=== PATIENT | male | born 1990 | race Caucasian/White ===

== ENCOUNTER 2016-05-05 15:41 | Observation (INO) | payer SELFPAY ==
--- NOTE | 2016-05-05 15:48 | ER Document Report ---
ED Medical Screen (RME) - General Stated Complaint: SYNCOPAL EPISODE Time seen by provider: 15:48 Mode of Arrival: Medic Information source: Patient Notes: 25-year-old with hx seizure at age 10 , male developed vision blurring/black, next thing He knows he woke up floor on his stomach. He then got up and leaned against a machine at work feeling nauseated, someone brought him a couple water , a coworker told him that his eyes rolled back in his head his eyes got foggy and he passed out again. He has amnesia to other events. This morning in his bathroom he was at the sink and his vision became blurred again and the next thing he knows he woke up on the floor in the position on his left side. I is complaining of pain in his left lower ribs, left knee and he is complaining of dysuria that started yesterday. With a little bit of suprapubic discomfort. He is a bruise over his right eyebrow with headache from right superior orbit to right post occiput, no hx headache . He also has midline lower neck discomfort. I have consulted with the dr. gardner supervisory physician per [facility] Guidelines. I have greeted and performed a rapid initial assessment of this patient. A comprehensive ED assessment, evaluation of the patient, analysis of test results , and completion of the medical decision making process will be contacted by additional ED providers. - Related Data Allergies/Adverse Reactions: Penicillins Allergy (Verified 05/05/16 15:58) Physical Exam - Vital signs Vitals: Temp Pulse Resp BP Pulse Ox 97.9 F 85 16 118/90 H 98 05/05/16 15:48 05/05/16 15:48 05/05/16 15:48 05/05/16 15:48 05/05/16 15:48 Course - Vital Signs Vital signs: Temp Pulse Resp BP Pulse Ox 97.9 F 85 16 118/90 H 98 05/05/16 15:48 05/05/16 15:48 05/05/16 15:48 05/05/16 15:48 05/05/16 15:48
[2016-05-05 16:49] LABS: AMORPHOUS SEDIMENT,URINE TRACE /HPF; APPEARANCE,URINE TURBID; BILIRUBIN,URINE NEGATIVE (NEGATIVE); GLUCOSE, URINE NEGATIVE (NEGATIVE); KETONES,URINE NEGATIVE (NEGATIVE); LEUKOCYTE ESTERASE,URINE NEGATIVE (NEGATIVE); NITRITE,URINE NEGATIVE (NEGATIVE); PROTEIN,URINE NEGATIVE (NEGATIVE); URINE SPECIFIC GRAVITY 1.018; UROBILINOGEN,URINE NEGATIVE mg/dL (<2.0)
[2016-05-05 16:52] LABS: ABSOLUTE LYMPHOCYTES (AUTO) 1.7 10^3/uL (0.5-4.7); ABSOLUTE MONOCYTES (AUTO) 0.9 10^3/uL (0.1-1.4); ABSOLUTE NEUT (AUTO) 5.9 10^3/uL (1.7-8.2); BASOPHILS % (AUTO) 0.6 % (0-2); EOSINOPHILS % (AUTO) 0.4 % (0-6); HEMATOCRIT 45.1 % (37.9-51.0); HEMOGLOBIN 15.2 g/dL (13.5-17.0); HGB HCT DIFFERENCE 0.5; LYMPHOCYTES % (AUTO) 19.7 % (13-45); MEAN CORPUSCULAR HEMOGLOBIN 30.1 pg (27.0-33.4); MEAN CORPUSCULAR HGB CONC 33.7 g/dL (32.0-36.0); MEAN CORPUSCULAR VOLUME 89 fl (80-97); MONOCYTES % (AUTO) 10.2 % (3-13); RED BLOOD COUNT 5.04 10^6/uL (4.35-5.55); RED CELL DISTRIBUTION WIDTH 12.9 % (11.5-14.0); SEGMENTED NEUTROPHILS % (AUTO) 69.1 % (42-78); WHITE BLOOD COUNT 8.5 10^3/uL (4.0-10.5)
[2016-05-05 17:05] LABS: ALANINE AMINOTRANSFERASE 20 U/L (21-72); ALKALINE PHOSPHATASE 67 U/L (38-126); ANION GAP 15 (5-19); ASPARTATE AMINO TRANSFERASE 17 U/L (17-59); BILIRUBIN,TOTAL 0.7 mg/dL (0.2-1.3); BLOOD UREA NITROGEN 11 mg/dL (7-20); CALCIUM 10.3 mg/dL (8.4-10.2); CARBON DIOXIDE 29 mmol/L (22-30); CHLORIDE 104 mmol/L (98-107); CREATININE RESULT 0.79 mg/dL (0.52-1.25); GLUCOSE 106 mg/dL (75-110); POTASSIUM 4.7 mmol/L (3.6-5.0); SODIUM 148.1 mmol/L (137-145); TOTAL PROTEIN 8.1 g/dL (6.3-8.2)
--- NOTE | 2016-05-05 18:13 | ER Document Report ---
ED Syncope and Near Syncope - General Chief Complaint: Syncope Stated Complaint: SYNCOPAL EPISODE Time Seen by Provider: 05/05/16 15:47 Mode of Arrival: Medic Notes: Patient is a 25-year-old male who presents emergency department via EMS after multiple syncopal episodes in the past 2 days. Patient is here with his mother who conducts most of the history. She states that he has a history of seizure activity when he was 10-year-old but has not had any issues over the past 10 years. He does not follow any neurologist and is not on any medications. Mom states that over the past 2 days he has had multiple syncopal episodes described and witnessed by his boss. Mom states that the boss witnessed and standing his eyes glazed over and low back into his head and collapsed but has not witnessed any tongue biting, generalized convulsions or loss of urinary control. Denies any chest pain before these episodes, palpitations, shortness of breath, dyspnea, chest pressure. Past medical history significant for ADHD and history of seizures as a child Denies any surgical history Social history denies any tobacco use, alcohol or drug use. Only significant change in diet over the past 10 days has been noted rapid decrease in his caffeine intake. He is to drink 12 allergy drinks such as rockstar daily but it 's only been drinking pop over the past couple of day TRAVEL OUTSIDE OF THE [place] IN LAST 30 DAYS: No - Related Data Allergies/Adverse Reactions: Penicillins Allergy (Verified 05/05/16 15:58) Past Medical History - General Information source: Patient - Social History Smoking Status: Never Smoker Chew tobacco use (# tins/day): No Frequency of alcohol use: None Drug Abuse: None Family History: None Patient has suicidal ideation: No Patient has homicidal ideation: No Renal/ Medical History: Denies: Hx Peritoneal Dialysis Review of Systems - Review of Systems Constitutional: No symptoms reported EENT: No symptoms reported Cardiovascular: No symptoms reported Respiratory: No symptoms reported Gastrointestinal: No symptoms reported Genitourinary: No symptoms reported Male Genitourinary: No symptoms reported Musculoskeletal: No symptoms reported Skin: No symptoms reported Hematologic/Lymphatic: No symptoms reported Neurological/Psychological: See HPI Physical Exam - Vital signs Vitals: Temp Pulse Resp BP Pulse Ox 97.9 F 85 16 118/90 H 98 05/05/16 15:48 05/05/16 15:48 05/05/16 15:48 05/05/16 15:48 05/05/16 15:48 - Notes Notes: PHYSICAL EXAM GENERAL: Alert, interacts well. HEAD: Normocephalic, atraumatic. EYES: Pupils equal, round, and reactive to light. Extraocular movements intact. ENT: Oral mucosa moist, tongue midline. NECK: Full range of motion. Supple. Trachea midline. LUNGS: Clear to auscultation bilaterally, no wheezes, rales, or rhonchi. No respiratory distress. Pain to superficial palpation of the left rib cage. Patient states that he previously saw him left side. HEART: Regular rate and rhythm. No murmurs, gallops, or rubs. ABDOMEN: Soft, nondistended, nontender. No guarding, rebound, or rigidity.. Bowel sounds present in all 4 quadrants. EXTREMITIES: Moves all 4 extremities spontaneously. No edema, radial and dorsalis pedis pulses 2/4 bilaterally. No cyanosis. Pain with movement of his left lower extremity that able to bear weight without any difficulty. NEUROLOGICAL: Alert and oriented x3. Normal speech. PSYCH: Normal affect, normal mood. SKIN: Warm, dry, normal turgor. No rashes or lesions noted. Course - Re-evaluation Re-evalutation: 05/05/16 19:55 Patient is a 25 year old male who is HDS and NAd, afebrile with h/o syncope episode x6 over the past month. PMH s/f seizure history as a child but patient has been noncompliant with medications due to cost. Labs and imaging WNL. D/w Dr. Dong for observation and further evaluation. Per [facility] protocol and guidelines, this case was discussed with supervising physician Dr. Mat Nava prior to admission - Vital Signs Vital signs: Temp Pulse Resp BP Pulse Ox 97.9 F 87 16 117/88 H 98 05/05/16 15:48 05/05/16 18:41 05/05/16 15:48 05/05/16 18:41 05/05/16 15:48 - Laboratory Result Diagrams: 05/05/16 16:05 05/05/16 16:05 Laboratory results interpreted by me: 05/05/16 16:05 Sodium 148.1 H Calcium 10.3 H ALT 20 L - Diagnostic Test Radiology reviewed: Image reviewed, Reports reviewed - EKG Interpretation by Me EKG shows normal: Sinus rhythm Rate: Normal Rhythm: NSR When compared to previous EKG there are: Previous EKG unavailable Discharge - Discharge Clinical Impression: Syncope Qualifiers: Syncope type: unspecified Qualified Code(s): R55 - Syncope and collapse Condition: Stable Disposition: ADMITTED OBSERVATION Admitting Provider: Hospitalist - [facility] Admitted: Telemetry
[2016-05-05] MEDS ORDERED: ACETAMINOPHEN 325 MG TABLET PO PRN (18:54)
[2016-05-05] MEDS ORDERED: ONDANSETRON HCL INJ/PF 4 MG/2 ML SDV IV PRN (18:54)
[2016-05-05] MEDS ORDERED: LEVETIRACETAM 1000 MG/NACL-ISO 1,000 MG/100 ML RTUPB IV ONE (18:59)
[2016-05-05 19:03] LABS: URINE BARBITURATES SCREEN NEGATIVE; URINE METHADONE SCREEN NEGATIVE; URINE OPIATES LOW NEGATIVE; URINE PHENCYCLIDINE SCREEN NEGATIVE
--- NOTE | 2016-05-05 19:12 | PDOC H&P ---
History of Present Illness Admission Date/PCP: 05/05/16 Patient complains of: Syncope History of Present Illness: KEITH MADSEN is a 25 year old male, with prior history of seizure presents with syncopal episode 3 times. First the wounds were reportedly unwitnessed and the patient found on the floor unconscious. Evidently the patient regained consciousness after a few minutes. Patient recently had another episode this time witnessed having generalized shaking and upward rolling of the eyeballs. Eventually the patient passed out as reported. The patient does not remember the episodes. All the episodes happened while at work. Patient is not on any seizure medication. She used to be on seizure medicine but stopped it by himself as he couldn't afford the medication. Patient reports that he has not had any workup for it in the past Past Medical History Neurological Medical History: Reports: Seizures Past Surgical History Past Surgical History: Reports: None Social History Information Source: Patient Smoking Status: Never Smoker Frequency of Alcohol Use: None Hx Recreational Drug Use: No Drugs: None Family History Family History: Malignancy - Lung cancer Parental Family History Reviewed: Yes Children Family History Reviewed: Yes Sibling(s) Family History Reviewed.: Yes Medication/Allergy Home Medications: Naproxen [Naprosyn 375 Mg Tablet] 375 mg PO BID #20 tablet 07/11/12 Allergies/Adverse Reactions: Penicillins Allergy (Verified 05/05/16 15:58) Review of Systems Constitutional: ABSENT: chills, fever(s), headache(s), weakness, weight gain, weight loss Eyes: ABSENT: visual disturbances Ears: ABSENT: hearing changes Nose, Mouth, and Throat: ABSENT: mouth pain, sore throat Cardiovascular: ABSENT: chest pain, dyspnea on exertion, edema, orthropnea, palpitations Respiratory: ABSENT: cough, hemoptysis Gastrointestinal: ABSENT: abdominal pain, constipation, diarrhea, hematemesis, hematochezia, nausea, vomiting Genitourinary: ABSENT: dysuria, hematuria Musculoskeletal: ABSENT: joint swelling Integumentary: ABSENT: pruritus, rash, wounds Neurological: PRESENT: convulsions, dizziness - At times. ABSENT: abnormal gait , abnormal speech, confusion, focal weakness, frequent falls, syncope Psychiatric: ABSENT: anxiety, depression, homidical ideation, suicidal ideation Endocrine: ABSENT: cold intolerance, heat intolerance, polydipsia, polyuria Hematologic/Lymphatic: ABSENT: easy bleeding, easy bruising Physical Exam Vital Signs: Temp Pulse Resp BP Pulse Ox 97.9 F 87 16 117/88 H 98 05/05/16 15:48 05/05/16 18:41 05/05/16 15:48 05/05/16 18:41 05/05/16 15:48 Intake & Output 05/04/16 05/05/16 05/06/16 06:59 06:59 06:59 Weight 49 kg General appearance: PRESENT: no acute distress, thin Head exam: PRESENT: atraumatic, normocephalic Eye exam: PRESENT: conjunctiva pink, EOMI, PERRLA. ABSENT: scleral icterus Ear exam: PRESENT: normal external ear exam Mouth exam: PRESENT: moist, neck supple, tongue midline Neck exam: ABSENT: carotid bruit, JVD, lymphadenopathy, thyromegaly Respiratory exam: PRESENT: clear to auscultation becky. ABSENT: rales, rhonchi, wheezes Cardiovascular exam: PRESENT: RRR. ABSENT: diastolic murmur, rubs, systolic murmur Pulses: PRESENT: normal dorsalis pedis pul Vascular exam: PRESENT: normal capillary refill GI/Abdominal exam: PRESENT: normal bowel sounds, soft. ABSENT: distended, guarding, mass, organolmegaly, rebound, tenderness Rectal exam: PRESENT: deferred Extremities exam: PRESENT: full ROM. ABSENT: calf tenderness, clubbing, pedal edema Neurological exam: PRESENT: alert, awake, oriented to person, oriented to place , oriented to time, oriented to situation, CN II-XII grossly intact. ABSENT: motor sensory deficit Psychiatric exam: PRESENT: appropriate affect, normal mood. ABSENT: homicidal ideation, suicidal ideation Skin exam: PRESENT: dry, intact, warm, other - I do not see any laceration or significant hematoma.. ABSENT: cyanosis, rash Results Laboratory Results: 05/05/16 16:05 05/05/16 16:05 05/05/16 05/05/16 05/05/16 16:05 16:05 16:05 WBC 8.5 RBC 5.04 Hgb 15.2 Hct 45.1 MCV 89 MCH 30.1 MCHC 33.7 RDW 12.9 Plt Count 239 Seg Neutrophils % 69.1 Lymphocytes % 19.7 Monocytes % 10.2 Eosinophils % 0.4 Basophils % 0.6 Absolute Neutrophils 5.9 Absolute Lymphocytes 1.7 Absolute Monocytes 0.9 Absolute Eosinophils 0.0 Absolute Basophils 0.0 Sodium 148.1 H Potassium 4.7 Chloride 104 Carbon Dioxide 29 Anion Gap 15 BUN 11 Creatinine 0.79 Est GFR ( Amer) > 60 Est GFR (Non-Af Amer) > 60 Glucose 106 Calcium 10.3 H Total Bilirubin 0.7 AST 17 ALT 20 L Alkaline Phosphatase 67 Total Protein 8.1 Albumin 5.0 Urine Color YELLOW Urine Appearance TURBID Urine pH 7.0 Ur Specific [place] 1.018 Urine Protein NEGATIVE Urine Glucose (UA) NEGATIVE Urine Ketones NEGATIVE Urine Blood NEGATIVE Urine Nitrite NEGATIVE Ur Leukocyte Esterase NEGATIVE Urine RBC (Auto) 1 Impressions: Head CT 05/05/16 15:57 IMPRESSION: NORMAL BRAIN CT WITHOUT CONTRAST. Assessment & Plan - Diagnosis (1) Seizure Is this a current diagnosis for this admission?: Yes (2) Hypercalcemia Is this a current diagnosis for this admission?: Yes - Time Time Spent: 30 to 50 Minutes Within: within 24 hours - Plan Summary Plan Summary: We will admit the patient for observation. Obtain an MRI of the brain. We will see if an EEG can be done and if it is discontinued followed on an outpatient basis. I will put the patient on Keppra. I will hydrate with normal saline and monitor electrolytes. SIENNA hickman for DVT prophylaxis. Further testing depends on initial evaluation as outlined above.
--- NOTE | 2016-05-05 20:04 | EKG REPORT ---
SEVERITY:- BORDERLINE ECG - SINUS RHYTHM CONSIDER RIGHT VENTRICULAR HYPERTROPHY : Confirmed by: Lily Gan MD 05-May-2016 20:04:13
[2016-05-05] MEDS: NORMAL SALINE 1000 ML 1,000 ML IV PRN (20:44)
[2016-05-06] MEDS: NORMAL SALINE 1000 ML 1,000 ML IV PRN ×2 (03:17→09:27)
[2016-05-06] MEDS ORDERED: LANSOPRAZOLE 30 MG TAB.RAP.DR PO SCH (06:00)
[2016-05-06 07:36] LABS: ANION GAP 10 (5-19); BLOOD UREA NITROGEN 11 mg/dL (7-20); CALCIUM 9.2 mg/dL (8.4-10.2); CARBON DIOXIDE 25 mmol/L (22-30); CHLORIDE 109 mmol/L (98-107); CREATININE RESULT 0.75 mg/dL (0.52-1.25); GLUCOSE 93 mg/dL (75-110); PHOSPHORUS 4.1 mg/dL (2.5-4.5); POTASSIUM 4.5 mmol/L (3.6-5.0)
[2016-05-06] MEDS ORDERED: LEVETIRACETAM 500 MG TABLET PO SCH (10:00)
--- NOTE | 2016-05-06 11:05 | PDOC DISCHARGE SUMMARY ---
General - Admit/Disc Date/PCP Admission Date/Primary Care Provider: 05/05/16 18:54 Discharge Date: 05/06/16 - Discharge Diagnosis (1) Seizure Is this a current diagnosis for this admission?: Yes (2) Hypercalcemia Is this a current diagnosis for this admission?: Yes - Additional Information Resuscitation Status: Full Code Discharge Diet: Regular, Other (Comments) - Increase oral fluid intake Discharge Activity: Activity As Tolerated, Balance Activity w/Rest Home Medications: Levetiracetam [Keppra 500 mg Tablet] 500 mg PO BID #60 tablet 05/06/16 Additional Information: EEG as outpatient with primary care physician or neurologist. No driving until reevaluated by primary care physician or neurologist. History of Present Illness Patient complains of: Seizure, syncope History of Present Illness: KEITH MADSEN is a 25 year old male, with prior history of seizure presents with syncopal episode 3 times. First the wounds were reportedly unwitnessed and the patient found on the floor unconscious. Evidently the patient regained consciousness after a few minutes. Patient recently had another episode this time witnessed having generalized shaking and upward rolling of the eyeballs. Eventually the patient passed out as reported. The patient does not remember the episodes. All the episodes happened while at work. Patient is not on any seizure medication. She used to be on seizure medicine but stopped it by himself as he couldn't afford the medication. Patient reports that he has not had any workup for it in the past Hospital Course Hospital Course: The patient was admitted to observation. MRI of the brain was obtained and it was normal. Patient was found to have hypercalcemia. Normal saline IV infusion was given and a follow-up normalized. No reported seizure episode noted while in the hospital. He was started on Keppra. The patient improved and feels better prior to discharge. No seizure activity reported by the patient as well. The rest of the hospital stay is essentially unremarkable. EEG was ordered but at this time unable to perform. Patient prefers to have it done on an outpatient basis at this time. Physical Exam Vital Signs: Temp Pulse Resp BP Pulse Ox 97.6 F 64 18 100/53 L 99 05/06/16 07:55 05/06/16 07:55 05/06/16 07:55 05/06/16 07:55 05/06/16 07:55 Intake & Output 05/05/16 05/06/16 05/07/16 06:59 06:59 06:59 Intake Total 1996 Output Total 300 Balance 1697 Weight 51 kg General appearance: PRESENT: no acute distress, cooperative Head exam: PRESENT: normocephalic Eye exam: PRESENT: EOMI, PERRLA Mouth exam: PRESENT: moist, neck supple Neck exam: ABSENT: JVD Respiratory exam: PRESENT: clear to auscultation becky Cardiovascular exam: PRESENT: RRR GI/Abdominal exam: PRESENT: normal bowel sounds, soft. ABSENT: distended, tenderness Extremities exam: ABSENT: pedal edema Neurological exam: PRESENT: alert, awake, oriented to person, oriented to place , oriented to time, oriented to situation Results Laboratory Results: 05/06/16 06:43 05/06/16 06:43 Sodium 144.0 Potassium 4.5 Chloride 109 H Carbon Dioxide 25 Anion Gap 10 BUN 11 Creatinine 0.75 Est GFR ( Amer) > 60 Est GFR (Non-Af Amer) > 60 Glucose 93 Calcium 9.2 Phosphorus 4.1 Magnesium 2.0 Impressions: Head MRI 05/05/16 00:00 IMPRESSION: Normal brain. Head CT 05/05/16 15:57 IMPRESSION: NORMAL BRAIN CT WITHOUT CONTRAST. Qualifiers PATEINT BEING DISCHARGED WITH ANY OF THE FOLLOWING DIAGNOSIS?: No Plan Discharge Plan: Follow-up with primary care physician [facility] in one week. Follow-up with neurologist in [facility] in one to 2 weeks. Time Spent: Less than 30 Minutes
[2016-05-06 11:35] VITALS: BP 108/68
== END 2016-05-06 12:57 | disposition home or self-care (01) ==
LOC: ER 15:41 → EH 18:54 → UNDOADMOB 19:43 → EH 19:43 → 4N 21:15
DX: R56.9 Unspecified convulsions (principal); E83.52 Hypercalcemia
CPT/HCPCS: 93005; 99285; 96374; 36415 ×2; 83735; 84100; 85025; 80048; 80053; 81001; 80307; 70551; 70450; 93010; G0378 ×3; J7030 ×2; J1953

== ENCOUNTER 2018-11-14 19:08 | Emergency (ER) | payer SELFPAY ==
--- NOTE | 2018-11-14 20:33 | ER Document Report ---
ED Medical Screen (RME) - General Chief Complaint: Bloody Stools Stated Complaint: POSSIBLE BLOOD IN STOOL,LOSS OF APPETITE Time Seen by Provider: 11/14/18 20:27 Mode of Arrival: Ambulatory Information source: Patient Notes: 28 yo male presents to ed for complaint of loose blood stools for the last week with no appetite and loosing weight. He states a similar thing happened 4 years ago and did not have a diagnosis for it then. He states he does not have any past medical history except seizures. no longer takes keppra. No smoke drink or drugs. Patient is alert oriented respiration regular and unlabored. I have greeted and performed a rapid initial assessment of this patient. A comprehensive ED assessment and evaluation of the patient, analysis of test results and completion of medical decision making process will be conducted by an additional ED providers. Dictation of this chart was performed using voice recognition software; therefore, there may be some unintended grammatical errors. TRAVEL OUTSIDE OF THE [place] IN LAST 30 DAYS: No - Related Data Allergies/Adverse Reactions: Penicillins Allergy (Verified 11/14/18 20:24) Past Medical History - Social History Frequency of alcohol use: None Drug Abuse: None Neurological Medical History: Reports: Hx Seizures - 1 when younger Renal/ Medical History: Denies: Hx Peritoneal Dialysis Psychiatric Medical History: Reports: Hx Depression - Immunizations Hx Diphtheria, Pertussis, Tetanus Vaccination: Yes Physical Exam - Vital signs Vitals: Temp Pulse Resp BP Pulse Ox 97.8 F 79 20 104/72 98 11/14/18 19:18 11/14/18 19:18 11/14/18 19:18 11/14/18 19:18 11/14/18 19:18 Course - Vital Signs Vital signs: Temp Pulse Resp BP Pulse Ox 97.8 F 79 20 104/72 98 11/14/18 19:18 11/14/18 19:18 11/14/18 19:18 11/14/18 19:18 11/14/18 19:18
[2018-11-14 21:06] LABS: ABSOLUTE BASOPHILS # (AUTO) 0.1 10^3/uL (0.0-0.2); ABSOLUTE LYMPHOCYTES (AUTO) 2.5 10^3/uL (0.5-4.7); ABSOLUTE MONOCYTES (AUTO) 0.8 10^3/uL (0.1-1.4); ABSOLUTE NEUT (AUTO) 6.1 10^3/uL (1.7-8.2); EOSINOPHILS % (AUTO) 0.5 % (0-6); HEMATOCRIT 39.8 % (37.9-51.0); HEMOGLOBIN 13.9 g/dL (13.5-17.0); LYMPHOCYTES % (AUTO) 25.9 % (13-45); MEAN CORPUSCULAR HEMOGLOBIN 30.8 pg (27.0-33.4); MEAN CORPUSCULAR HGB CONC 35.1 g/dL (32.0-36.0); MEAN CORPUSCULAR VOLUME 88 fl (80-97); MONOCYTES % (AUTO) 8.5 % (3-13); PLATELET COUNT 242 10^3/uL (150-450); RED BLOOD COUNT 4.52 10^6/uL (4.35-5.55); RED CELL DISTRIBUTION WIDTH 12.8 % (11.5-14.0); SEGMENTED NEUTROPHILS % (AUTO) 64.1 % (42-78); TOTAL CELLS COUNTED % (AUTO) 100 %; WHITE BLOOD COUNT 9.5 10^3/uL (4.0-10.5)
[2018-11-14 21:22] LABS: ALBUMIN 4.6 g/dL (3.5-5.0); ALKALINE PHOSPHATASE 70 U/L (38-126); ANION GAP 10 (5-19); ASPARTATE AMINO TRANSFERASE 26 U/L (17-59); BILIRUBIN,DIRECT 0.3 mg/dL (0.0-0.4); BILIRUBIN,TOTAL 0.7 mg/dL (0.2-1.3); BLOOD UREA NITROGEN 12 mg/dL (7-20); CALCIUM 9.7 mg/dL (8.4-10.2); CARBON DIOXIDE 31 mmol/L (22-30); CHLORIDE 101 mmol/L (98-107); GLUCOSE 83 mg/dL (75-110); POTASSIUM 3.8 mmol/L (3.6-5.0); TOTAL PROTEIN 7.5 g/dL (6.3-8.2)
[2018-11-15] MEDS ORDERED: NORMAL SALINE 1000 ML 1,000 ML IV ONE (00:55)
--- NOTE | 2018-11-15 01:39 | ER Document Report ---
ED General - General Chief Complaint: Bloody Stools Stated Complaint: POSSIBLE BLOOD IN STOOL,LOSS OF APPETITE Time Seen by Provider: 11/14/18 20:27 Mode of Arrival: Ambulatory Notes: Patient is a 28-year-old male that comes emergency department for chief complaint of 1 week of frequent diarrhea. He states that he has started to notice some bloody streaks in the stools intermittently, denies large amounts of blood in stool. Reports some chills but no fevers have been recorded. He reports intermittent lower abdominal cramping. He denies vomiting. He reports decreased oral intake and states that he is losing some weight. He denies any obvious your office food but states he did eat a suspicious sausage biscuit just over a week ago. He denies recent antibiotics, recent travel. Denies any sick contacts. Past medical history of seizure disorder, previous on Keppra, currently takes no daily medications. TRAVEL OUTSIDE OF THE [place] IN LAST 30 DAYS: No - Related Data Allergies/Adverse Reactions: Penicillins Allergy (Verified 11/14/18 20:24) Past Medical History - General Information source: Patient - Social History Smoking Status: Never Smoker Frequency of alcohol use: None Drug Abuse: None Lives with: Family Family History: None Patient has suicidal ideation: No Patient has homicidal ideation: No Neurological Medical History: Reports: Hx Seizures - 1 when younger Renal/ Medical History: Denies: Hx Peritoneal Dialysis Psychiatric Medical History: Reports: Hx Depression - Immunizations Hx Diphtheria, Pertussis, Tetanus Vaccination: Yes Review of Systems - Review of Systems Constitutional: See HPI EENT: No symptoms reported Cardiovascular: No symptoms reported Respiratory: No symptoms reported Gastrointestinal: See HPI Genitourinary: No symptoms reported Male Genitourinary: No symptoms reported Musculoskeletal: No symptoms reported Skin: No symptoms reported Hematologic/Lymphatic: No symptoms reported Neurological/Psychological: No symptoms reported Physical Exam - Vital signs Vitals: Temp Pulse Resp BP Pulse Ox 97.8 F 79 20 104/72 98 11/14/18 19:18 11/14/18 19:18 11/14/18 19:18 11/14/18 19:18 11/14/18 19:18 - Notes Notes: GENERAL: Alert, interacts well. No acute distress. HEAD: Normocephalic, atraumatic. EYES: Pupils equal, round, and reactive to light. Extraocular movements intact. ENT: Oral mucosa moist, tongue midline. Oropharynx unremarkable. Airway patent. LUNGS: Clear to auscultation bilaterally, no wheezes, rales, or rhonchi. No respiratory distress. HEART: Regular rate and rhythm. No murmur ABDOMEN: Soft, non-tender. Non-distended. Bowel sounds present in all 4 quadrants. GENITOURINARY: Deferred EXTREMITIES: Moves all 4 extremities spontaneously. No edema, normal radial and dorsalis pedis pulses bilaterally. No cyanosis. BACK: no cervical, thoracic, lumbar midline tenderness. No saddle anesthesia, normal distal neurovascular exam. Moves all extremities in full range of motion. NEUROLOGICAL: Alert and oriented x3. Normal speech. Cranial nerves II through XII grossly intact. PSYCH: Very joking throughout the evaluation SKIN: Warm, dry, normal turgor. No rashes or lesions noted. Course - Re-evaluation Re-evalutation: Patient is somewhat extreme with his descriptions of his symptoms. He states he has not been able to eat anything for 2 weeks, however after he left the room patient was noted to be eating [employer] and drinking an entire bottle of Gatorade. He also states that he is having nonstop diarrhea with trace blood, however he could not provide a stool sample for me and he has been here for over 6 hours. Vital signs are unremarkable, CBC and chemistry are unremarkable including potassium. I did discuss with patient and family member at bedside. They do still state the patient is having a lot of diarrhea despite his difficulty providing it, patient will have the stool tested at home, because of his persistent diarrhea and reported frequency of diarrhea we did agree to cover him with Bactrim for possible inflammatory diarrhea source pending his stool results. His abdomen is soft and benign, I do not suspect acute abdomen, I do not suspect any emergent pathology, patient was discharged with return precautions. Patient and family state understanding and agreement. - Vital Signs Vital signs: Temp Pulse Resp BP Pulse Ox 98.1 F 59 L 12 113/54 L 97 11/15/18 01:43 11/15/18 01:43 11/15/18 01:43 11/15/18 01:43 11/15/18 01:43 - Laboratory Result Diagrams: 11/14/18 20:43 11/14/18 20:43 Laboratory results interpreted by me: 11/14/18 20:43 Carbon Dioxide 31 H Discharge - Discharge Clinical Impression: Diarrhea Qualifiers: Diarrhea type: unspecified type Qualified Code(s): R19.7 - Diarrhea, unspecified Condition: Stable Disposition: HOME, SELF-CARE Additional Instructions: Your laboratory work-up does not show any concerning findings. Because of your symptoms of very frequent diarrhea that has not resolved, we are empirically treating you with the antibiotic, take as prescribed. Obtain a stool sample and bring it to the lab for testing as noted on the prescription. Follow-up with primary care. Return if you worsen including spiking fever, vomiting, severe worsening pain, passing out, or any other concerning or worsen ing symptoms. Prescriptions: Sulfamethoxazole/Trimethoprim [Bactrim Ds Tablet] 1 each PO BID #14 tablet Forms: Follow-Up Laboratory Testing, Return to Work
[2018-11-15 01:45] VITALS: BP 113/54
[2018-11-15] MEDS ORDERED: SULFAMETHOXAZOLE/TRIMETHOPRIM 800-160 MG TABLET PO ONE (02:06)
== END 2018-11-15 02:12 | disposition home or self-care (01) ==
LOC: ER 19:08
DX: R19.7 Diarrhea, unspecified (principal); K92.1 Melena; R68.83 Chills (without fever); R63.4 Abnormal weight loss; Z88.0 Allergy status to penicillin
CPT/HCPCS: 36415; 80053; 83690; 85025; 99283

== ENCOUNTER 2018-11-19 23:50 | Emergency (ER) | payer SELFPAY ==
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
[2018-11-20 07:35] VITALS: BP 120/71
== END 2018-11-20 07:12 | disposition home or self-care (01) ==
LOC: ER 23:50
DX: K92.1 Melena (principal); R63.4 Abnormal weight loss; Z88.0 Allergy status to penicillin
CPT/HCPCS: 82272; 87045; 87205; 99283

== ENCOUNTER 2019-03-21 08:43 | Emergency (ER) | payer SELFPAY ==
--- NOTE | 2019-03-21 10:33 | ER Document Report ---
HPI - HPI Patient complains to provider of: flu symptoms Time Seen by Provider: 03/21/19 10:27 Onset: Yesterday Onset/Duration: Sudden Quality of pain: No pain Pain Level: Denies Context: 28-year-old male presents with possible flu symptoms. Reports he had diarrhea 3 times yesterday. None today. Reports he feels dizzy. Reports he woke up with a hot sweat this morning around 5:00 went back to sleep when he woke up again he was cold. Has not received his flu shot. No complaints of vomiting or fever. Patient looks good nontoxic no distress. Associated Symptoms: None Exacerbated by: Denies Relieved by: Denies Similar symptoms previously: No Recently seen / treated by doctor: No - REPRODUCTIVE Reproductive: DENIES: : Past Medical History - General Information source: Patient - Social History Smoking Status: Never Smoker Chew tobacco use (# tins/day): No Frequency of alcohol use: None Drug Abuse: None Occupation: [employer] Lives with: Family Family History: None Patient has suicidal ideation: No Patient has homicidal ideation: No Pulmonary Medical History: Reports: Hx Asthma - As a child Neurological Medical History: Reports: Hx Seizures - 1 when younger Renal/ Medical History: Denies: Hx Peritoneal Dialysis Psychiatric Medical History: Reports: Hx Depression Surgical Hx: Negative - Immunizations Hx Diphtheria, Pertussis, Tetanus Vaccination: Yes Vertical Provider Document - CONSTITUTIONAL Agree With Documented VS: Yes Exam Limitations: No Limitations General Appearance: WD/WN, No Apparent Distress - INFECTION CONTROL TRAVEL OUTSIDE OF THE [place] IN LAST 30 DAYS: No - HEENT HEENT: Atraumatic, Normal ENT Exam, Normocephalic, PERRLA. negative: Conjuctival Injection, Pharyngeal Erythema, Tympanic Membrane Bulging - NECK Neck: Normal Inspection, Supple. negative: Lymphadenopathy-Left, Lymphadenopathy-Right - RESPIRATORY Respiratory: Breath Sounds Normal, No Respiratory Distress - CARDIOVASCULAR Cardiovascular: Regular Rate, Regular Rhythm - GI/ABDOMEN Gastrointestinal: Abdomen Soft, Abdomen Non-Tender - MUSCULOSKELETAL/EXTREMETIES Musculoskeletal/Extremeties: MAEW, FROM, Non-Tender - NEURO Level of Consciousness: Awake, Alert, Appropriate - DERM Integumentary: Warm, Dry Course - Re-evaluation Re-evalutation: 03/21/19 10:32 28-year-old presents emergency department with complaints of possible flu symptoms. His sister is also here with same symptoms. He looks great nontoxic looking influenza test ordered. 03/21/19 11:13 Influenza negative. Patient was instructed on the importance of push fluids take [id number] antidiarrheal as indicated follow-up with provider within 1 week or return for worsening symptoms. He verbalized understanding to all instruction. Dictation of this chart was performed using voice recognition software; therefore, there may be some unintended grammatical errors. - Vital Signs Vital signs: Temp Pulse Resp BP Pulse Ox 97.8 F 60 16 110/70 100 03/21/19 08:59 03/21/19 08:59 03/21/19 08:59 03/21/19 08:59 03/21/19 08:59 Discharge - Discharge Clinical Impression: Flu-like symptoms, Diarrhea Condition: Stable Disposition: HOME, SELF-CARE Additional Instructions: *You have been evaluated for flulike symptoms *Increase fluid intake as discussed *Monitor your temperature, take Tylenol as indicated *Follow up with a primary care provider within 1 week for recheck *Return to ED for worsening condition, changes, needs Forms: Return to Work
[2019-03-21 11:03] LABS: A TYPE INFLUENZA AG NEGATIVE (NEGATIVE); B INFLUENZA AG NEGATIVE (NEGATIVE)
[2019-03-21 12:06] VITALS: BP 101/55
== END 2019-03-21 12:07 | disposition home or self-care (01) ==
LOC: ER 08:43
DX: R19.7 Diarrhea, unspecified (principal); R42 Dizziness and giddiness; R61 Generalized hyperhidrosis
CPT/HCPCS: 87804; 99283

== ENCOUNTER 2019-09-04 13:52 | Emergency (ER) | payer SELFPAY ==
[2019-09-04 13:59] VITALS: BP 112/69
[2019-09-04] MEDS ORDERED: IBUPROFEN 600 MG TABLET PO ONE (14:16)
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
== END 2019-09-04 14:54 | disposition home or self-care (01) ==
LOC: ER 13:52
DX: M79.18 Myalgia, other site (principal); S60.221A Contusion of right hand, initial encounter; S60.00XA Contusion of unspecified finger without damage to nail, initial encounter; V49.50XA Passenger injured in collision with unspecified motor vehicles in traffic accident, initial encounter; Z88.0 Allergy status to penicillin
CPT/HCPCS: 99283